=== PATIENT | male | born 1985 | race African-American/Black ===

== ENCOUNTER 2022-07-27 11:38 | Emergency (ER) | payer SELFPAY ==
[2022-07-27 12:21] VITALS: BP 163/101; PULSE 113
[2022-07-27] MEDS ORDERED: predniSONE 20 MG Tab PO ONE (12:38)
== END 2022-07-27 12:56 | disposition home or self-care (01) ==
LOC: JD.ED 11:38
DX: J45.21 Mild intermittent asthma with (acute) exacerbation (principal)
CPT/HCPCS: 99284

== ENCOUNTER 2022-11-08 13:27 | Emergency (ER) | payer SELFPAY ==
[2022-11-08 13:42] VITALS: BP 125/77; PULSE 101
[2022-11-08] MEDS ORDERED: Albuterol 6.7 GM Inhaler INH ONE (13:52)
[2022-11-08] MEDS ORDERED: methylPREDNISolone Sodium Succinate 125 MG/2 ML SDV IM ONE (13:52)
== END 2022-11-08 14:43 | disposition home or self-care (01) ==
LOC: JD.ED 13:27
DX: L25.9 Unspecified contact dermatitis, unspecified cause (principal); J45.901 Unspecified asthma with (acute) exacerbation
CPT/HCPCS: 96372; 99284; A9270; J2930; 99283

== ENCOUNTER 2022-11-25 15:30 | Emergency (ER) | payer SELFPAY ==
[2022-11-25 15:47] VITALS: BP 166/86; PULSE 105
[2022-11-25] MEDS ORDERED: methylPREDNISolone Sodium Succinate 40 MG/1 ML SDV IM ONE (16:13)
== END 2022-11-25 16:28 | disposition home or self-care (01) ==
LOC: JD.ED 15:30
DX: L20.9 Atopic dermatitis, unspecified (principal)
CPT/HCPCS: 96372; 99282; J2920

== ENCOUNTER 2022-12-10 14:11 | Emergency (ER) | payer SELFPAY ==
[2022-12-10] MEDS ORDERED: Diphtheria,Pertussis(Acell),Tetanus Vaccine 0.5 ML Syringe IM ONE (15:11)
[2022-12-10 15:37] VITALS: BP 122/68; PULSE 64
== END 2022-12-10 15:25 | disposition home or self-care (01) ==
LOC: JD.ED 14:11
DX: L30.9 Dermatitis, unspecified (principal); J45.909 Unspecified asthma, uncomplicated; Z23 Encounter for immunization
CPT/HCPCS: 90471; 90715; 99282-25; 99283

== ENCOUNTER 2023-05-11 12:19 | Emergency (ER) | payer SELFPAY ==
[2023-05-11 12:25] VITALS: BP 141/91; PULSE 90
[2023-05-12] MEDS ORDERED: predniSONE 20 MG Tab PO ONE (12:56)
== END 2023-05-11 13:05 | disposition home or self-care (01) ==
LOC: JD.ED 12:19
DX: L24.89 Irritant contact dermatitis due to other agents (principal); J45.909 Unspecified asthma, uncomplicated; F17.210 Nicotine dependence, cigarettes, uncomplicated
CPT/HCPCS: 99282